=== PATIENT | male | born 1945 | race Caucasian/White ===

== ENCOUNTER 2016-08-30 17:54 | Emergency (ER) | payer OTHER ==
[~2016-08-30] VITALS: Ht 177.8 cm; Wt 90.9 kg
[~2016-08-30 17:54] MED LIST: ADULT LOW DOSE81 M1 PO; ALPRAZOLAM1 MG PO; AMBIEN CR12.5 MG PO; AMBIEN10 MG PO; AMLODIPINE BESYL5 MG PO; AMOXICILLIN500 M1 PO; ASA FREE ANALG1 EACH PO; ASPIR 8181 M1 PO; ASPIRIN325 MG PO; ASPIRIN81 M2 PO; ATARAX,VISTARIL25 MG PO; ATARAX,VISTARIL50 MG PO; AVINZA30 MG PO; BACLOFEN10 MG PO; BENTYL10 MG PO; CENTRUM SILVER1 EAC3 PO; CHILDREN'S ASPI81 M1 PO; CIPRO500 MG PO; CLOBETASOL PROP60 GM TP; CLONAZEPAM0.5 MG PO; CLONAZEPAM1 MG PO; CLONIDINE HCL0.1 MG PO; COLACE100 MG PO; COMPAZINE5 MG PO; DIAZEPAM10 MG PO; DIAZEPAM5 MG PO; DICYCLOMINE HCL10 MG PO; DICYCLOMINE HCL20 MG PO; DILAUDID2 MG PO; DOCU SOFT100 MG PO; DOXEPIN HCL25 MG PO; FLAGYL500 MG PO; FLEXERIL10 MG PO; FLOMAX0.4 MG PO; FLORASTOR250 MG PO; GABAPENTIN100 MG PO; HALCION0.25 MG PO; HARVONI 90-4001 EACH PO; HYDROCHLOROTH12.5 M3 PO; HYDROCHLOROTHIA25 MG PO; HYDROCHLOROTHIAZIDE PO; HYZAAR 100-21 TABLET PO; IPRATROPIUM BRO30 ML BOTH NARES; KLONOPIN1 MG PO; LIDOCAINE700 MG TD; LIDODERM 5% P1 PATCH TD; LISINOPRIL10 MG PO; LISINOPRIL20 MG PO; LITE COAT ASPI325 M1 PO; LOW DOSE ASPIRI81 M1 PO; LYRICA75 MG PO; METANX CAPSULE1 EACH PO; METHADONE10 MG PO; METOPROLOL SUCC25 MG PO; METOPROLOL SUCC50 MG PO; METOPROLOL TART50 MG PO; MIRALAX17 GM PO; MIRALAX255 GM PO; MOBIC7.5 MG PO; MORPHINE SULFAT15 MG PO; MORPHINE SULFAT30 M2 PO; MOTRIN600 MG PO; NAPROXEN500 MG PO; NEPHRON FA TAB1 EACH PO; OMEPRAZOLE20 MG PO; OXAYDO5 MG PO; OXYCODONE HCL10 MG PO; OXYCODONE HCL15 MG PO; OXYCODONE HCL5 MG PO; OXYCODONE10 MG PO; OXYCONTIN10 MG PO; OXYCONTIN15 MG PO; PANTOPRAZOLE SO40 MG PO; PEPCID20 MG PO; POLYETHYLENE GL17 GM PO; PRAVACHOL10 MG PO; PRAVACHOL40 MG PO; PRAVASTATIN SOD40 MG PO; PREDNISONE5 MG PO; PREVACID15 MG PO; PRILOSEC20 MG PO; PRILOSEC40 MG PO; PRINIVIL20 MG PO; PROMETHAZINE HC25 M1 PO; PROTONIX40 MG PO; RANITIDINE HCL150 MG PO; ROXICODONE5 MG PO; SENNA8.6 M1 PO; SENNA8.6 MG PO; SEROQUEL50 MG PO; SINEQUAN25 MG PO; SUBOXONE 4 MG-1 EACH SL; SYNTHROID175 MCG PO; TAMSULOSIN HCL0.4 MG PO; TOPROL XL50 MG PO; TOPROL XL6.25 MG PO; TORADOL10 MG PO; TRAZODONE HCL100 MG PO; TRAZODONE HCL50 MG PO; TRIAZOLAM0.25 MG PO; TUMS500 MG PO; ULTRAM50 MG PO; VALIUM5 MG PO; VANCOCIN 250 M250 MG PO; VANCOMYCIN HCL125 MG PO; VANCOMYCIN125 MG/2.5 PO; Vancocin Oral Solution PO; XIFAXAN550 MG PO; ZESTRIL20 MG PO; ZOFRAN ODT4 MG PO; ZOFRAN ODT8 MG PO; ZOFRAN4 MG PO; ZOFRAN8 MG PO
[2016-08-30 18:11] VITALS: BP 165/113
[2016-08-31] MEDS ORDERED: AMLODIPINE BESYL5 MG PO (21:00)
== END 2016-08-30 18:30 | disposition left against medical advice (07) ==
LOC: EME 17:54
DX: R22.42 Localized swelling, mass and lump, left lower limb (principal); Z53.21 Procedure and treatment not carried out due to patient leaving prior to being seen by health care provider

== ENCOUNTER 2016-08-31 18:02 | Emergency (ER) | payer OTHER ==
[~2016-08-31] VITALS: Ht 177.8 cm; Wt 89.5 kg
[2016-08-31] MEDS ORDERED: AMLODIPINE BESYL5 MG PO (21:00)
[2016-08-31 21:05] LABS: BASOPHIL COUNT 0.1 K/uL (0-0.1); EOSINOPHIL (%) 0.6 % (0-5); EOSINOPHIL COUNT 0.1 K/uL (0-0.3); HEMATOCRIT 44.5 % (38.0-50.0); IMMATURE GRANULOCYTE (%) 0.9 % (0.0-0.7); IMMATURE GRANULOCYTE COUNT 0.1 K/uL; LYMPHOCYTE COUNT 1.2 K/uL (1.0-2.8); MCH 32.8 PG (29.0-34.0); MCHC 32.4 G/DL (30.0-36.0); MCV 101.4 FL (86-99); MEAN PLAT.VOLUME 9.8 uM^3 (9.0-12.4); MONOCYTE (%) 10.3 % (3-12); MONOCYTE COUNT 1.1 K/uL (0-0.8); NEUTROPHIL (%) 76.4 % (45-76); PLATELET COUNT 208 K/uL (156-360); RBC DIS.WIDTH-CV 13.1 % (11.8-14.6); RBC DIS.WIDTH-SD 48.5 % (39-53); RED BLOOD COUNT 4.39 M/uL (4.00-5.50); WHITE BLOOD COUNT 10.5 K/uL (4.1-10.2)
[2016-08-31 21:19] LABS: INTER. NORMALIZED RATIO 1.1; PROTHROMBIN TIME 11.5 (9.2-11.2); PTT 28.5 (25-32)
[2016-08-31 21:26] LABS: CHLORIDE 103 mEq/L (99-109); SODIUM 138 mEq/L (136-147)
[2016-08-31 21:28] LABS: GLUCOSE 109 mg/dL (70-99)
[2016-08-31 21:30] LABS: ANION GAP 10 MEQ/L (2-14)
[2016-08-31 21:32] LABS: GFR ESTIMATE (CALCULATED) > 59 mL/min/
[2016-08-31 21:33] LABS: UREA NITROGEN (BUN) 32 mg/dL (9-23)
[2016-08-31 23:22] VITALS: BP 111/73
== END 2016-08-31 23:45 | disposition home or self-care (01) ==
LOC: EME 18:02
PROVIDERS: Emergency Medicine
DX: G89.18 Other acute postprocedural pain (principal); Z95.828 Presence of other vascular implants and grafts; L76.32 Postprocedural hematoma of skin and subcutaneous tissue following other procedure; I10 Essential (primary) hypertension; Z95.5 Presence of coronary angioplasty implant and graft; Z79.82 Long term (current) use of aspirin; Z87.891 Personal history of nicotine dependence
CPT/HCPCS: 80048; 85025; 85610; 85730; 93926; 99281; 99284

== ENCOUNTER 2016-09-14 11:17 | Emergency (ER) | payer OTHER ==
[~2016-09-14] VITALS: Ht 175.3 cm; Wt 86.0 kg
[2016-09-14 11:22] VITALS: BP 128/79
== END 2016-09-14 13:56 | disposition left against medical advice (07) ==
LOC: EME 11:17
DX: R19.7 Diarrhea, unspecified (principal); J45.909 Unspecified asthma, uncomplicated; E78.5 Hyperlipidemia, unspecified; I10 Essential (primary) hypertension; Z87.442 Personal history of urinary calculi; B19.20 Unspecified viral hepatitis C without hepatic coma; Z95.1 Presence of aortocoronary bypass graft; Z79.82 Long term (current) use of aspirin; Z87.891 Personal history of nicotine dependence
CPT/HCPCS: 80048; 80076; 81003; 83690; 84484; 85027; 87493; 99281; 99283

== ENCOUNTER 2016-09-18 03:08 | Emergency (ER) | payer OTHER ==
[~2016-09-18] VITALS: Ht 177.8 cm; Wt 85.6 kg
[2016-09-18 06:24] LABS: EOSINOPHIL (%) 0.6 % (0-5); EOSINOPHIL COUNT 0.1 K/uL (0-0.3); HEMATOCRIT 36.6 % (38.0-50.0); IMMATURE GRANULOCYTE (%) 1.8 % (0.0-0.7); IMMATURE GRANULOCYTE COUNT 0.2 K/uL; INSTRUMENT ABS NEUTROPHIL CT 7.8 K/uL; LYMPHOCYTE COUNT 1.2 K/uL (1.0-2.8); MCH 32.1 PG (29.0-34.0); MCV 100.5 FL (86-99); MEAN PLAT.VOLUME 9.2 uM^3 (9.0-12.4); MONOCYTE (%) 6.7 % (3-12); MONOCYTE COUNT 0.7 K/uL (0-0.8); NEUTROPHIL COUNT 7.8 K/uL (1.8-6.4); PLATELET COUNT 432 K/uL (156-360); RBC DIS.WIDTH-SD 45.1 % (39-53); RED BLOOD COUNT 3.64 M/uL (4.00-5.50); WHITE BLOOD COUNT 9.9 K/uL (4.1-10.2)
[2016-09-18 06:33] LABS: CHLORIDE 105 mEq/L (99-109); SODIUM 141 mEq/L (136-147)
[2016-09-18 06:35] LABS: GLUCOSE 115 mg/dL (70-99)
[2016-09-18 06:36] LABS: ANION GAP 11 MEQ/L (2-14)
[2016-09-18 06:37] LABS: TOTAL BILIRUBIN 0.5 mg/dL (0.0-1.0)
[2016-09-18 06:39] LABS: ALKALINE PHOSPHATASE 158 IU/L (3-129); GFR ESTIMATE (CALCULATED) > 59 mL/min/
[2016-09-18 06:40] LABS: UREA NITROGEN (BUN) 17 mg/dL (9-23)
[2016-09-18] MEDS ORDERED: ZOFRAN ODT4 MG PO (07:52)
[2016-09-18 08:14] VITALS: BP 125/75
== END 2016-09-18 08:17 | disposition home or self-care (01) ==
LOC: EME 03:08
PROVIDERS: Emergency Medicine
DX: R20.2 Paresthesia of skin (principal); E78.5 Hyperlipidemia, unspecified; I10 Essential (primary) hypertension; Z86.79 Personal history of other diseases of the circulatory system; Z98.890 Other specified postprocedural states; Z95.1 Presence of aortocoronary bypass graft; Z87.442 Personal history of urinary calculi; Z88.6 Allergy status to analgesic agent; Z91.041 Radiographic dye allergy status; Z87.891 Personal history of nicotine dependence
CPT/HCPCS: 80053; 83605; 85014; 85018; 85025; 93926; 99281; 99284

== ENCOUNTER 2016-10-12 21:25 | Emergency (ER) | payer OTHER ==
[~2016-10-12] VITALS: Ht 177.8 cm; Wt 86.6 kg
[2016-10-12 22:37] LABS: ADD MIUA? YES; BILIRUBIN NEGATIVE; BLOOD MODERATE; COLOR YELLOW ((YELLOW)); GLUCOSE (STRIP) NEGATIVE; KETONES NEGATIVE; LEUKOCYTES NEGATIVE; NITRITE NEGATIVE; PROTEIN (STRIP) NEGATIVE; SPECIFIC GRAVITY 1.011 (1.000-1.030); UROBILINOGEN 0.2 MG/DL (0.2-1.0)
[2016-10-12 22:50] LABS: HEMATOCRIT 43.7 % (38.0-50.0); MCH 31.9 PG (29.0-34.0); MCV 96.7 FL (86-99); MEAN PLAT.VOLUME 9.8 uM^3 (9.0-12.4); PLATELET COUNT 249 K/uL (156-360); RBC DIS.WIDTH-CV 12.7 % (11.8-14.6); RBC DIS.WIDTH-SD 45.9 % (39-53); RED BLOOD COUNT 4.52 M/uL (4.00-5.50); WHITE BLOOD COUNT 11.8 K/uL (4.1-10.2)
[2016-10-12 22:53] LABS: BACTERIA RARE /HPF; EPITHELIAL CELLS RARE /HPF; HYALINE CASTS 0-5 /LPF; MUCUS TRACE /LPF; RED BLOOD CELLS 30-40 /HPF (0-5); UCUL ADDED? NO; WHITE BLOOD CELLS 0-5 /HPF (0-5)
[2016-10-12 22:58] LABS: CHLORIDE 107 mEq/L (99-109); POTASSIUM 3.5 mEq/L (3.7-5.4); SODIUM 136 mEq/L (136-147)
[2016-10-12 23:00] LABS: GLUCOSE 118 mg/dL (70-99)
[2016-10-12 23:01] LABS: ANION GAP 10 MEQ/L (2-14)
[2016-10-12 23:02] LABS: TOTAL BILIRUBIN 0.6 mg/dL (0.0-1.0)
[2016-10-12 23:04] LABS: ALKALINE PHOSPHATASE 92 IU/L (3-129); GFR ESTIMATE (CALCULATED) > 59 mL/min/
[2016-10-12 23:05] LABS: UREA NITROGEN (BUN) 14 mg/dL (9-23)
[2016-10-13] MEDS ORDERED: DILAUDID2 MG PO (06:13)
[2016-10-13 06:22] VITALS: BP 142/87
== END 2016-10-13 06:23 | disposition home or self-care (01) ==
LOC: EME 21:25
DX: N20.1 Calculus of ureter (principal); Z98.890 Other specified postprocedural states; J45.909 Unspecified asthma, uncomplicated; E78.5 Hyperlipidemia, unspecified; I10 Essential (primary) hypertension; B19.20 Unspecified viral hepatitis C without hepatic coma; Z87.442 Personal history of urinary calculi; Z95.1 Presence of aortocoronary bypass graft; Z87.891 Personal history of nicotine dependence
CPT/HCPCS: 74174; 80053; 81003; 85027; 99281; 99284; J2270; J7030

== ENCOUNTER 2016-10-27 00:31 | Observation (INO) | payer OTHER ==
[~2016-10-27] VITALS: Ht 177.8 cm; Wt 88.3 kg
[2016-10-27 00:54] LABS: ADD MIUA? YES; BILIRUBIN NEGATIVE; BLOOD SMALL; COLOR YELLOW ((YELLOW)); GLUCOSE (STRIP) NEGATIVE; KETONES NEGATIVE; LEUKOCYTES TRACE; NITRITE NEGATIVE; PROTEIN (STRIP) 30; SPECIFIC GRAVITY 1.025 (1.000-1.030); UROBILINOGEN 0.2 MG/DL (0.2-1.0)
[2016-10-27 01:01] LABS: BACTERIA NONE SEEN /HPF; EPITHELIAL CELLS RARE /HPF; MUCUS TRACE /LPF
[2016-10-27 01:18] LABS: EOSINOPHIL COUNT 0.1 K/uL (0-0.3); HEMATOCRIT 40.8 % (38.0-50.0); IMMATURE GRANULOCYTE (%) 0.5 % (0.0-0.7); IMMATURE GRANULOCYTE COUNT 0.1 K/uL; INSTRUMENT ABS NEUTROPHIL CT 11.3 K/uL; LYMPHOCYTE COUNT 1.4 K/uL (1.0-2.8); MCH 31.8 PG (29.0-34.0); MCHC 32.8 G/DL (30.0-36.0); MCV 96.9 FL (86-99); MEAN PLAT.VOLUME 10.4 uM^3 (9.0-12.4); MONOCYTE (%) 5.6 % (3-12); MONOCYTE COUNT 0.8 K/uL (0-0.8); NEUTROPHIL (%) 82.2 % (45-76); NEUTROPHIL COUNT 11.3 K/uL (1.8-6.4); PLATELET COUNT 209 K/uL (156-360); RBC DIS.WIDTH-SD 43.4 % (39-53); RED BLOOD COUNT 4.21 M/uL (4.00-5.50); WHITE BLOOD COUNT 13.8 K/uL (4.1-10.2)
[2016-10-27 01:28] LABS: CHLORIDE 107 mEq/L (99-109); POTASSIUM 3.6 mEq/L (3.7-5.4); SODIUM 143 mEq/L (136-147)
[2016-10-27 01:30] LABS: GLUCOSE 139 mg/dL (70-99)
[2016-10-27 01:31] LABS: ANION GAP 10 MEQ/L (2-14)
[2016-10-27 01:32] LABS: TOTAL BILIRUBIN 0.3 mg/dL (0.0-1.0)
[2016-10-27 01:33] LABS: ALKALINE PHOSPHATASE 104 IU/L (3-129)
[2016-10-27 01:34] LABS: GFR ESTIMATE (CALCULATED) > 59 mL/min/
[2016-10-27 01:35] LABS: UREA NITROGEN (BUN) 29 mg/dL (9-23)
[2016-10-27 01:37] LABS: LIPASE 23 U/L (1.0-51.0)
[2016-10-27] MEDS ORDERED: OXYCODONE HCL10 MG PO ×2 (05:31→17:28)
[2016-10-27 05:38] VITALS: BP 163/80
[2016-10-27] MEDS ORDERED: DUTASTERIDE0.5 MG PO (09:57)
[2016-10-27] MEDS ORDERED: DOCUSATE SODIU100 MG PO (09:57)
[2016-10-27] MEDS ORDERED: IPRATROPIUM BRO15 ML BOTH NARES (09:58)
[2016-10-27] MEDS ORDERED: MIRALAX17 GM PO (09:59)
[2016-10-27] MEDS ORDERED: ALPRAZOLAM1 MG PO (09:59)
[2016-10-27] MEDS ORDERED: PRAVASTATIN SOD40 MG PO (10:00)
[2016-10-27 11:40] VITALS: BP 142/66
[2016-10-27 16:01] VITALS: BP 196/85
[2016-10-27] MEDS ORDERED: TAMSULOSIN HCL0.4 MG PO (17:19)
[2016-10-28] MEDS ORDERED: CIPRO500 MG PO (21:41)
== END 2016-10-27 19:03 | disposition home or self-care (01) ==
LOC: EME 00:31 → 5WEST 04:59 → EDOF 04:59 → 5WEST 05:31
PROVIDERS: Emergency Medicine
DX: N13.2 Hydronephrosis with renal and ureteral calculous obstruction (principal); N35.9 Urethral stricture, unspecified; N21.0 Calculus in bladder; R35.1 Nocturia; E03.9 Hypothyroidism, unspecified; I25.10 Atherosclerotic heart disease of native coronary artery without angina pectoris; I10 Essential (primary) hypertension; E78.5 Hyperlipidemia, unspecified; F32.9 Major depressive disorder, single episode, unspecified; F41.9 Anxiety disorder, unspecified; B18.2 Chronic viral hepatitis C; Z95.1 Presence of aortocoronary bypass graft; G89.29 Other chronic pain; M54.9 Dorsalgia, unspecified; I12.9 Hypertensive chronic kidney disease with stage 1 through stage 4 chronic kidney disease, or unspecified chronic kidney disease; N18.3 Chronic kidney disease, stage 3 (moderate); E87.6 Hypokalemia; F11.20 Opioid dependence, uncomplicated
CPT/HCPCS: 74176; 80053; 81003; 83690; 85025; 99281; 99284; C1769; C1876; G0378; J0692; J1170; J1650; J1885; J2270; J2405; J3010; J3480; J7030; J7050; S0028

== ENCOUNTER 2016-10-28 17:07 | Emergency (ER) | payer OTHER ==
[~2016-10-28] VITALS: Ht 177.8 cm; Wt 88.6 kg
[~2016-10-28 17:07] MED LIST changes: +DOCUSATE SODIU100 MG PO; +DUTASTERIDE0.5 MG PO; +IPRATROPIUM BRO15 ML BOTH NARES
[2016-10-28 17:58] LABS: HEMATOCRIT 39.1 % (38.0-50.0); MCH 31.6 PG (29.0-34.0); MCHC 33.2 G/DL (30.0-36.0); MCV 95.1 FL (86-99); MEAN PLAT.VOLUME 10.5 uM^3 (9.0-12.4); PLATELET COUNT 217 K/uL (156-360); RBC DIS.WIDTH-CV 11.9 % (11.8-14.6); RBC DIS.WIDTH-SD 42.2 % (39-53); RED BLOOD COUNT 4.11 M/uL (4.00-5.50); WHITE BLOOD COUNT 11.7 K/uL (4.1-10.2)
[2016-10-28 18:09] LABS: CHLORIDE 106 mEq/L (99-109); POTASSIUM 3.2 mEq/L (3.7-5.4); SODIUM 142 mEq/L (136-147)
[2016-10-28 18:11] LABS: GLUCOSE 133 mg/dL (70-99)
[2016-10-28 18:13] LABS: ANION GAP 11 MEQ/L (2-14)
[2016-10-28 18:15] LABS: GFR ESTIMATE (CALCULATED) > 59 mL/min/
[2016-10-28 18:16] LABS: UREA NITROGEN (BUN) 22 mg/dL (9-23)
[2016-10-28 19:09] LABS: ADD MIUA? YES; BILIRUBIN NEGATIVE; BLOOD LARGE; COLOR AMBER ((YELLOW)); GLUCOSE (STRIP) NEGATIVE; KETONES NEGATIVE; LEUKOCYTES SMALL; NITRITE NEGATIVE; PROTEIN (STRIP) 100; SPECIFIC GRAVITY 1.019 (1.000-1.030); UROBILINOGEN 0.2 MG/DL (0.2-1.0)
[2016-10-28 19:26] LABS: BACTERIA 1+ /HPF; CASTS NONE SEEN /LPF; CRYSTALS NONE SEEN; EPITHELIAL CELLS RARE /HPF; MUCUS RARE /LPF; RED BLOOD CELLS TNTC /HPF (0-5); UCUL ADDED? NO
[2016-10-28] MEDS ORDERED: CIPRO500 MG PO (21:41)
[2016-10-28 23:37] VITALS: BP 157/94
== END 2016-10-28 21:42 | disposition home or self-care (01) ==
LOC: EME 17:07
DX: N39.0 Urinary tract infection, site not specified (principal); N20.0 Calculus of kidney; I10 Essential (primary) hypertension; J45.909 Unspecified asthma, uncomplicated; F31.9 Bipolar disorder, unspecified; E78.5 Hyperlipidemia, unspecified; Z95.1 Presence of aortocoronary bypass graft; Z87.891 Personal history of nicotine dependence
CPT/HCPCS: 74176; 80048; 81003; 85027; 93005; 99281; 99285; J1885; J2270; J2405; J7030

== ENCOUNTER 2016-10-30 17:18 | Emergency (ER) | payer OTHER ==
[~2016-10-30] VITALS: Ht 177.8 cm; Wt 86.7 kg
[2016-10-30 20:23] LABS: ADD MIUA? YES; BILIRUBIN NEGATIVE; BLOOD LARGE; COLOR YELLOW ((YELLOW)); GLUCOSE (STRIP) NEGATIVE; KETONES NEGATIVE; LEUKOCYTES LARGE; NITRITE NEGATIVE; PROTEIN (STRIP) 100; SPECIFIC GRAVITY 1.017 (1.000-1.030); UROBILINOGEN 0.2 MG/DL (0.2-1.0)
[2016-10-30 20:29] LABS: BACTERIA RARE /HPF; EPITHELIAL CELLS RARE /HPF; MUCUS TRACE /LPF; RED BLOOD CELLS TNTC /HPF (0-5); WHITE BLOOD CELLS 15-20 /HPF (0-5)
[2016-10-30 21:14] VITALS: BP 128/105
== END 2016-10-30 21:15 | disposition home or self-care (01) ==
LOC: EME 17:18
PROVIDERS: Physician Assistant
DX: N13.2 Hydronephrosis with renal and ureteral calculous obstruction (principal); E78.5 Hyperlipidemia, unspecified; I10 Essential (primary) hypertension; F32.9 Major depressive disorder, single episode, unspecified; Z87.442 Personal history of urinary calculi; Z88.6 Allergy status to analgesic agent; Z91.041 Radiographic dye allergy status; Z87.891 Personal history of nicotine dependence; Z95.1 Presence of aortocoronary bypass graft
CPT/HCPCS: 74000; 76770; 81003; 87086; 99281; 99284; J1885

== ENCOUNTER 2016-10-31 04:12 | Emergency (ER) | payer OTHER | END 2016-10-31 04:22 | disposition left against medical advice (07) | LOC: EME 04:12 | DX: R10.9 Unspecified abdominal pain (principal); Z53.21 Procedure and treatment not carried out due to patient leaving prior to being seen by health care provider ==

== ENCOUNTER 2016-10-31 20:28 | Emergency (ER) | payer OTHER ==
[~2016-10-31] VITALS: Ht 177.8 cm; Wt 86.1 kg
[2016-10-31 20:41] VITALS: BP 170/92
== END 2016-11-01 00:05 | disposition left against medical advice (07) ==
LOC: EME 20:28
DX: R19.7 Diarrhea, unspecified (principal); Z53.21 Procedure and treatment not carried out due to patient leaving prior to being seen by health care provider

== ENCOUNTER 2016-11-01 01:22 | Emergency (ER) | payer OTHER ==
[~2016-11-01] VITALS: Ht 177.8 cm; Wt 90.0 kg
[2016-11-01 07:22] LABS: ADD MIUA? YES; BILIRUBIN NEGATIVE; BLOOD LARGE; COLOR YELLOW ((YELLOW)); GLUCOSE (STRIP) NEGATIVE; KETONES 5; LEUKOCYTES MODERATE; NITRITE NEGATIVE; PROTEIN (STRIP) 100; UROBILINOGEN 0.2 MG/DL (0.2-1.0)
[2016-11-01 07:38] LABS: C DIFF TOXIN NEGATIVE (NEGATIVE)
[2016-11-01 07:39] LABS: PROBE CHECK PASS; SPECIMEN PROCESSING CONTROL PASS
[2016-11-01 07:45] LABS: RED BLOOD CELLS TNTC /HPF (0-5)
[2016-11-01 07:46] LABS: CALCIUM OXALATE CRYSTALS 1+ /HPF; CRYSTALS PRESENT; EPITHELIAL CELLS 1+ /HPF; MUCUS 1+ /LPF; UCUL ADDED? NO; WHITE BLOOD CELLS 20-30 /HPF (0-5)
[2016-11-01 07:47] LABS: BACTERIA RARE /HPF
[2016-11-01 08:00] VITALS: BP 136/91
== END 2016-11-01 08:30 | disposition home or self-care (01) ==
LOC: EME 01:22
PROVIDERS: Physician Assistant
DX: R10.9 Unspecified abdominal pain (principal); R19.7 Diarrhea, unspecified; E78.5 Hyperlipidemia, unspecified; I10 Essential (primary) hypertension; Z87.442 Personal history of urinary calculi; Z95.1 Presence of aortocoronary bypass graft; Z91.041 Radiographic dye allergy status; Z87.891 Personal history of nicotine dependence; Z88.6 Allergy status to analgesic agent
CPT/HCPCS: 80053; 81003; 85027; 87493; 99281; 99284

== ENCOUNTER 2016-11-05 06:38 | Emergency (ER) | payer OTHER ==
[~2016-11-05] VITALS: Ht 177.8 cm; Wt 86.0 kg
[2016-11-05 07:44] LABS: BASOPHIL COUNT 0.1 K/uL (0-0.1); EOSINOPHIL COUNT 0.2 K/uL (0-0.3); HEMATOCRIT 41.2 % (38.0-50.0); IMMATURE GRANULOCYTE (%) 0.3 % (0.0-0.7); INSTRUMENT ABS NEUTROPHIL CT 6.7 K/uL; LYMPHOCYTE COUNT 1.4 K/uL (1.0-2.8); MCH 31.8 PG (29.0-34.0); MCHC 33.5 G/DL (30.0-36.0); MCV 94.9 FL (86-99); MEAN PLAT.VOLUME 10.3 uM^3 (9.0-12.4); MONOCYTE COUNT 0.8 K/uL (0-0.8); NEUTROPHIL COUNT 6.7 K/uL (1.8-6.4); PLATELET COUNT 253 K/uL (156-360); RBC DIS.WIDTH-CV 12.3 % (11.8-14.6); RBC DIS.WIDTH-SD 43.5 % (39-53); RED BLOOD COUNT 4.34 M/uL (4.00-5.50); WHITE BLOOD COUNT 9.2 K/uL (4.1-10.2)
[2016-11-05 07:53] LABS: ADD MIUA? YES; BILIRUBIN NEGATIVE; BLOOD LARGE; COLOR YELLOW ((YELLOW)); GLUCOSE (STRIP) NEGATIVE; KETONES NEGATIVE; LEUKOCYTES LARGE; NITRITE NEGATIVE; PROTEIN (STRIP) 100; SPECIFIC GRAVITY 1.016 (1.000-1.030); UROBILINOGEN 0.2 MG/DL (0.2-1.0)
[2016-11-05 08:08] LABS: ANION GAP 8 MEQ/L (2-14); CHLORIDE 106 MEQ/L (99-109); POTASSIUM 3.5 MEQ/L (3.7-5.4); SAMPLE HEMOLYSIS CHECK 0; SAMPLE ICTERIC CHECK 0; SAMPLE LIPEMIA CHECK 0; SODIUM 136 MEQ/L (136-147); TOTAL BILIRUBIN 0.5 MG/DL (0.0-1.0)
[2016-11-05 08:13] LABS: ALKALINE PHOSPHATASE 96 IU/L (3-129); GFR ESTIMATE (CALCULATED) > 59 mL/min/; GLUCOSE 108 mg/dL (70-99); UREA NITROGEN (BUN) 20 mg/dL (9-23)
[2016-11-05 08:15] LABS: BACTERIA RARE /HPF; EPITHELIAL CELLS RARE /HPF; MUCUS 1+ /LPF; RED BLOOD CELLS TNTC /HPF (0-5); UCUL ADDED? NO; URIC ACID CRYSTALS 3+ /HPF; WHITE BLOOD CELLS 15-20 /HPF (0-5)
[2016-11-05] MEDS ORDERED: NAPROXEN500 MG PO (11:06)
[2016-11-05 11:26] VITALS: BP 148/87
== END 2016-11-05 11:46 | disposition home or self-care (01) ==
LOC: EME 06:38
PROVIDERS: Physician Assistant
DX: N13.2 Hydronephrosis with renal and ureteral calculous obstruction (principal); J45.909 Unspecified asthma, uncomplicated; E78.5 Hyperlipidemia, unspecified; I10 Essential (primary) hypertension; Z87.442 Personal history of urinary calculi; Z95.1 Presence of aortocoronary bypass graft; Z87.891 Personal history of nicotine dependence
CPT/HCPCS: 74176; 80053; 81003; 85025; 87493; 99281; 99285; J1885; J7120

== ENCOUNTER 2016-11-07 18:38 | Emergency (ER) | payer OTHER ==
[~2016-11-07] VITALS: Ht 177.8 cm; Wt 85.6 kg
[2016-11-07 19:48] LABS: ADD MIUA? YES; BILIRUBIN NEGATIVE; BLOOD LARGE; COLOR AMBER ((YELLOW)); GLUCOSE (STRIP) NEGATIVE; KETONES NEGATIVE; LEUKOCYTES TRACE; NITRITE NEGATIVE; PROTEIN (STRIP) 100; UROBILINOGEN 0.2 MG/DL (0.2-1.0)
[2016-11-07 19:56] LABS: BACTERIA NONE SEEN /HPF; EPITHELIAL CELLS NONE SEEN /HPF; MUCUS TRACE /LPF; RED BLOOD CELLS TNTC /HPF (0-5); WHITE BLOOD CELLS 15-20 /HPF (0-5)
[2016-11-07 20:28] LABS: BASOPHIL COUNT 0.1 K/uL (0-0.1); EOSINOPHIL (%) 1.8 % (0-5); EOSINOPHIL COUNT 0.2 K/uL (0-0.3); IMMATURE GRANULOCYTE (%) 0.4 % (0.0-0.7); INSTRUMENT ABS NEUTROPHIL CT 6.7 K/uL; LYMPHOCYTE COUNT 1.3 K/uL (1.0-2.8); MCH 31.3 PG (29.0-34.0); MCHC 33.3 G/DL (30.0-36.0); MEAN PLAT.VOLUME 10.1 uM^3 (9.0-12.4); MONOCYTE (%) 7.6 % (3-12); MONOCYTE COUNT 0.7 K/uL (0-0.8); NEUTROPHIL (%) 74.7 % (45-76); NEUTROPHIL COUNT 6.7 K/uL (1.8-6.4); PLATELET COUNT 237 K/uL (156-360); RBC DIS.WIDTH-CV 12.2 % (11.8-14.6); RBC DIS.WIDTH-SD 42.5 % (39-53); RED BLOOD COUNT 4.15 M/uL (4.00-5.50); WHITE BLOOD COUNT 8.9 K/uL (4.1-10.2)
[2016-11-07 20:39] LABS: CHLORIDE 107 mEq/L (99-109); POTASSIUM 3.7 mEq/L (3.7-5.4); SODIUM 138 mEq/L (136-147)
[2016-11-07 20:42] LABS: GLUCOSE 105 mg/dL (70-99)
[2016-11-07 20:43] LABS: ANION GAP 9 MEQ/L (2-14); TOTAL BILIRUBIN 0.5 mg/dL (0.0-1.0)
[2016-11-07 20:45] LABS: ALKALINE PHOSPHATASE 88 IU/L (3-129); GFR ESTIMATE (CALCULATED) > 59 mL/min/
[2016-11-07 20:46] LABS: UREA NITROGEN (BUN) 16 mg/dL (9-23)
[2016-11-07 20:49] LABS: LIPASE 18 U/L (1.0-51.0)
[2016-11-07 21:47] VITALS: BP 115/64
== END 2016-11-07 21:52 | disposition home or self-care (01) ==
LOC: EME 18:38
PROVIDERS: Physician Assistant
DX: N23 Unspecified renal colic (principal); R31.9 Hematuria, unspecified; E78.5 Hyperlipidemia, unspecified; I10 Essential (primary) hypertension; Z87.442 Personal history of urinary calculi; Z95.1 Presence of aortocoronary bypass graft; Z79.82 Long term (current) use of aspirin; Z87.891 Personal history of nicotine dependence
CPT/HCPCS: 80053; 81003; 83690; 85025; 99281; 99283; J2270

== ENCOUNTER 2016-11-08 18:06 | Emergency (ER) | payer OTHER ==
[~2016-11-08] VITALS: Ht 177.8 cm; Wt 85.5 kg
[2016-11-08 18:40] VITALS: BP 113/93
== END 2016-11-08 19:01 | disposition left against medical advice (07) ==
LOC: EME 18:06
DX: R10.9 Unspecified abdominal pain (principal); R19.7 Diarrhea, unspecified; R50.9 Fever, unspecified; R06.02 Shortness of breath; R07.9 Chest pain, unspecified; Z53.21 Procedure and treatment not carried out due to patient leaving prior to being seen by health care provider
CPT/HCPCS: 80053; 81003; 83690; 84484; 85027; 93005

== ENCOUNTER 2016-12-05 21:27 | Emergency (ER) | payer OTHER ==
[~2016-12-05] VITALS: Ht 177.8 cm; Wt 85.7 kg
[2016-12-05 21:44] VITALS: BP 147/87
[2016-12-05 22:39] LABS: HEMATOCRIT 42.7 % (38.0-50.0); MCH 30.9 PG (29.0-34.0); MCV 93.6 FL (86-99); MEAN PLAT.VOLUME 10.8 uM^3 (9.0-12.4); PLATELET COUNT 197 K/uL (156-360); RBC DIS.WIDTH-SD 41.9 % (39-53); RED BLOOD COUNT 4.56 M/uL (4.00-5.50); WHITE BLOOD COUNT 8.6 K/uL (4.1-10.2)
[2016-12-05 22:50] LABS: CHLORIDE 109 mEq/L (99-109); POTASSIUM 3.8 mEq/L (3.7-5.4); SODIUM 139 mEq/L (136-147)
[2016-12-05 22:52] LABS: GLUCOSE 107 mg/dL (70-99)
[2016-12-05 22:53] LABS: ANION GAP 9 MEQ/L (2-14)
[2016-12-05 22:56] LABS: GFR ESTIMATE (CALCULATED) > 59 mL/min/
[2016-12-05 22:57] LABS: UREA NITROGEN (BUN) 19 mg/dL (9-23)
== END 2016-12-06 01:00 | disposition left against medical advice (07) ==
LOC: EME 21:27
DX: N20.0 Calculus of kidney (principal); Z53.21 Procedure and treatment not carried out due to patient leaving prior to being seen by health care provider
CPT/HCPCS: 80048; 81003; 85027

== ENCOUNTER 2017-01-01 15:51 | Emergency (ER) | payer OTHER ==
[~2017-01-01] VITALS: Ht 177.8 cm; Wt 78.0 kg
[2017-01-01 17:19] LABS: ADD MIUA? YES; BILIRUBIN NEGATIVE; BLOOD SMALL; GLUCOSE (STRIP) NEGATIVE; KETONES NEGATIVE; LEUKOCYTES NEGATIVE; NITRITE NEGATIVE; PROTEIN (STRIP) NEGATIVE; SPECIFIC GRAVITY 1.014 (1.000-1.030); UROBILINOGEN 0.2 MG/DL (0.2-1.0)
[2017-01-01 17:31] LABS: BACTERIA NONE SEEN /HPF; COLOR YELLOW ((YELLOW)); EPITHELIAL CELLS RARE /HPF; HYALINE CASTS 0-5 /LPF; MUCUS TRACE /LPF; WHITE BLOOD CELLS 0-5 /HPF (0-5)
[2017-01-01 17:52] VITALS: BP 96/58
== END 2017-01-01 17:53 | disposition left against medical advice (07) ==
LOC: EME 15:51
PROVIDERS: Physician Assistant
DX: I95.9 Hypotension, unspecified (principal); R07.9 Chest pain, unspecified; Z53.20 Procedure and treatment not carried out because of patient's decision for unspecified reasons; I25.10 Atherosclerotic heart disease of native coronary artery without angina pectoris; E78.00 Pure hypercholesterolemia, unspecified; I10 Essential (primary) hypertension; I25.2 Old myocardial infarction; Z87.442 Personal history of urinary calculi; J45.909 Unspecified asthma, uncomplicated; Z95.1 Presence of aortocoronary bypass graft; Z87.891 Personal history of nicotine dependence; Z79.82 Long term (current) use of aspirin
CPT/HCPCS: 80053; 81003; 83605; 84484; 85027; 93005; 99281; 99285; J7030

== ENCOUNTER 2017-04-21 13:53 | Emergency (ER) | payer OTHER ==
[~2017-04-21] VITALS: Ht 172.7 cm; Wt 83.1 kg
[2017-04-21 14:38] LABS: HEMATOCRIT 43.3 % (38.0-50.0); MCHC 33.5 G/DL (30.0-36.0); MCV 92.7 FL (86-99); MEAN PLAT.VOLUME 9.8 uM^3 (9.0-12.4); PLATELET COUNT 343 K/uL (156-360); RBC DIS.WIDTH-CV 11.6 % (11.8-14.6); RED BLOOD COUNT 4.67 M/uL (4.00-5.50); WHITE BLOOD COUNT 11.4 K/uL (4.1-10.2)
[2017-04-21 14:47] LABS: CHLORIDE 103 mEq/L (99-109); POTASSIUM 3.7 mEq/L (3.7-5.4); SODIUM 135 mEq/L (136-147)
[2017-04-21 14:48] LABS: GLUCOSE 129 mg/dL (70-99)
[2017-04-21 14:50] LABS: ANION GAP 11 MEQ/L (2-14)
[2017-04-21 14:52] LABS: GFR ESTIMATE (CALCULATED) > 59 mL/min/
[2017-04-21 14:53] LABS: UREA NITROGEN (BUN) 16 mg/dL (9-23)
[2017-04-21 14:59] LABS: TROP-I INTERPRETATION NEGATIVE; TROPONIN-I < 0.01 ng/mL (0.0-0.30)
[2017-04-21 15:05] LABS: TOTAL BILIRUBIN 0.7 mg/dL (0.0-1.0)
[2017-04-21 15:06] LABS: ALKALINE PHOSPHATASE 159 IU/L (3-129)
[2017-04-21 15:09] LABS: DIRECT BILIRUBIN 0.2 mg/dL (0.0-0.3)
[2017-04-21 15:10] LABS: LIPASE 18 U/L (1.0-51.0)
[2017-04-21 17:37] LABS: ADD MIUA? YES; BILIRUBIN NEGATIVE; BLOOD NEGATIVE; COLOR YELLOW ((YELLOW)); GLUCOSE (STRIP) NEGATIVE; KETONES 5; LEUKOCYTES NEGATIVE; NITRITE NEGATIVE; PROTEIN (STRIP) 30; SPECIFIC GRAVITY 1.019 (1.000-1.030); UROBILINOGEN 0.2 MG/DL (0.2-1.0)
[2017-04-21 17:51] LABS: BACTERIA NONE SEEN /HPF; EPITHELIAL CELLS RARE /HPF; MUCUS TRACE /LPF; UCUL ADDED? NO; WHITE BLOOD CELLS 0-5 /HPF (0-5)
[2017-04-21 18:21] LABS: TROP-I INTERPRETATION NEGATIVE; TROPONIN-I < 0.01 ng/mL (0.0-0.30)
[2017-04-21] MEDS ORDERED: ZOFRAN ODT4 MG PO (19:13)
[2017-04-21] MEDS ORDERED: CARAFATE100 MG/ML PO (19:13)
[2017-04-21 19:28] VITALS: BP 129/72
== END 2017-04-21 19:38 | disposition home or self-care (01) ==
LOC: EME 13:53
PROVIDERS: Emergency Medicine
DX: R10.13 Epigastric pain (principal); R11.2 Nausea with vomiting, unspecified; R07.89 Other chest pain; I45.10 Unspecified right bundle-branch block; I10 Essential (primary) hypertension; E78.5 Hyperlipidemia, unspecified; I25.10 Atherosclerotic heart disease of native coronary artery without angina pectoris; Z95.1 Presence of aortocoronary bypass graft; J45.909 Unspecified asthma, uncomplicated; F41.9 Anxiety disorder, unspecified; F32.9 Major depressive disorder, single episode, unspecified; G89.29 Other chronic pain; Z79.891 Long term (current) use of opiate analgesic; Z87.891 Personal history of nicotine dependence; Z88.6 Allergy status to analgesic agent; Z98.890 Other specified postprocedural states
CPT/HCPCS: 71020; 76700; 80048; 80076; 81003; 83690; 84484; 85027; 93005; 99281; 99285; J2405; J7030; S0028

== ENCOUNTER → 2017-05-13 13:33 | Emergency (ER) | payer OTHER ==
[~2017-05-13] VITALS: Ht 172.7 cm; Wt 81.0 kg
[~2017-05-13 13:33] MED LIST changes: +CARAFATE100 MG/ML PO
[2017-05-13 18:46] VITALS: BP 168/76
== END | disposition home or self-care (01) ==
LOC: EME 13:33
DX: S06.0X0A Concussion without loss of consciousness, initial encounter (principal); S16.1XXA Strain of muscle, fascia and tendon at neck level, initial encounter; W22.09XA Striking against other stationary object, initial encounter; W18.30XA Fall on same level, unspecified, initial encounter; Y93.89 Activity, other specified; Y92.512 Supermarket, store or market as the place of occurrence of the external cause; Z88.6 Allergy status to analgesic agent; Z91.041 Radiographic dye allergy status
CPT/HCPCS: 70450; 72040

== ENCOUNTER 2017-05-18 06:30 | Emergency (ER) | payer OTHER ==
[~2017-05-18] VITALS: Ht 175.3 cm; Wt 81.4 kg
[2017-05-18 06:33] VITALS: BP 138/93
== END 2017-05-18 06:45 | disposition left against medical advice (07) ==
LOC: EME 06:30
DX: R51 Headache (principal); Z53.21 Procedure and treatment not carried out due to patient leaving prior to being seen by health care provider

== ENCOUNTER 2017-05-27 12:34 | Emergency (ER) | payer OTHER ==
[~2017-05-27] VITALS: Ht 175.3 cm; Wt 83.7 kg
[2017-05-27 17:37] VITALS: BP 139/88
== END 2017-05-27 18:52 | disposition left against medical advice (07) ==
LOC: EME 12:34
DX: G44.209 Tension-type headache, unspecified, not intractable (principal); S16.1XXA Strain of muscle, fascia and tendon at neck level, initial encounter; W01.0XXA Fall on same level from slipping, tripping and stumbling without subsequent striking against object, initial encounter; Y92.512 Supermarket, store or market as the place of occurrence of the external cause; Z87.442 Personal history of urinary calculi; J45.909 Unspecified asthma, uncomplicated; I10 Essential (primary) hypertension; F41.9 Anxiety disorder, unspecified; F32.9 Major depressive disorder, single episode, unspecified; E78.5 Hyperlipidemia, unspecified; Z95.1 Presence of aortocoronary bypass graft; I25.10 Atherosclerotic heart disease of native coronary artery without angina pectoris; Z79.82 Long term (current) use of aspirin; Z88.6 Allergy status to analgesic agent
CPT/HCPCS: 99281; 99285; J1885; J2765; J7040

== ENCOUNTER 2017-06-20 03:05 | Emergency (ER) | payer OTHER ==
[~2017-06-20] VITALS: Ht 175.3 cm; Wt 81.8 kg
[2017-06-20 03:11] VITALS: BP 152/83
== END 2017-06-20 04:50 | disposition left against medical advice (07) ==
LOC: EME 03:05
DX: R51 Headache (principal); Z53.21 Procedure and treatment not carried out due to patient leaving prior to being seen by health care provider

== ENCOUNTER 2017-06-26 02:56 | Emergency (ER) | payer OTHER ==
[~2017-06-26] VITALS: Ht 172.7 cm; Wt 84.4 kg
[2017-06-26 05:15] VITALS: BP 147/94
== END 2017-06-26 05:15 | disposition home or self-care (01) ==
LOC: EME 02:56
DX: F07.81 Postconcussional syndrome (principal); G44.309 Post-traumatic headache, unspecified, not intractable; R59.1 Generalized enlarged lymph nodes; Z87.442 Personal history of urinary calculi; I10 Essential (primary) hypertension; F41.9 Anxiety disorder, unspecified; E78.5 Hyperlipidemia, unspecified; F32.9 Major depressive disorder, single episode, unspecified; J45.909 Unspecified asthma, uncomplicated; Z95.1 Presence of aortocoronary bypass graft; I25.10 Atherosclerotic heart disease of native coronary artery without angina pectoris; Z79.82 Long term (current) use of aspirin; Z91.041 Radiographic dye allergy status; Z88.6 Allergy status to analgesic agent
CPT/HCPCS: 99281; 99284; J1885

== ENCOUNTER 2017-09-02 21:27 | Emergency (ER) | payer OTHER ==
[~2017-09-02] VITALS: Ht 175.3 cm; Wt 83.1 kg
[2017-09-02 21:48] VITALS: BP 101/73
[2017-09-02 22:46] LABS: APPEARANCE CLEAR ((CLEAR)); BILIRUBIN NEGATIVE; BLOOD NEGATIVE; COLOR YELLOW ((YELLOW)); GLUCOSE (STRIP) NEGATIVE; KETONES NEGATIVE; LEUKOCYTES NEGATIVE; NITRITE NEGATIVE; PROTEIN (STRIP) NEGATIVE; UROBILINOGEN 0.2 MG/DL (0.2-1.0)
[2017-09-02 22:55] LABS: AMPHETAMINE NEGATIVE (500 ng/mL); BARBITURATES NEGATIVE (200 ng/mL); BENZODIAZEPINES PRESUMPTIVE POSITIVE (150 ng/mL); BUPRENORPHINE NEGATIVE (10 ng/mL); COCAINE NEGATIVE (150 ng/mL); METHADONE NEGATIVE (200 ng/mL); METHAMPHETAMINE NEGATIVE (500 ng/mL); OPIATES (MORPHINE) NEGATIVE (100 ng/mL); OXYCODONE NEGATIVE (100 ng/mL); PHENCYCLIDINE NEGATIVE (25 ng/mL); PROPOXYPHENE NEGATIVE (300 ng/mL); THC CANNABINOIDS NEGATIVE (50 ng/mL); TRICYCLIC ANTIDEPRESSANTS NEGATIVE (300 ng/mL)
[2017-09-03 03:25] LABS: BENZODIAZEPINES, URINE SCREEN POSITIVE (200 ng/mL)
== END 2017-09-02 23:39 | disposition left against medical advice (07) ==
LOC: EME 21:27
PROVIDERS: Physician Assistant
DX: G89.18 Other acute postprocedural pain (principal); I95.1 Orthostatic hypotension; E78.5 Hyperlipidemia, unspecified; I10 Essential (primary) hypertension; F32.9 Major depressive disorder, single episode, unspecified; F41.9 Anxiety disorder, unspecified; B19.20 Unspecified viral hepatitis C without hepatic coma; J45.909 Unspecified asthma, uncomplicated; I25.10 Atherosclerotic heart disease of native coronary artery without angina pectoris; Z95.1 Presence of aortocoronary bypass graft; Z88.6 Allergy status to analgesic agent; Z88.8 Allergy status to other drugs, medicaments and biological substances; Z87.891 Personal history of nicotine dependence; Z87.442 Personal history of urinary calculi
CPT/HCPCS: 81003; 84999; 99281; 99284

== ENCOUNTER 2017-09-23 02:00 | Emergency (ER) | payer OTHER ==
[~2017-09-23] VITALS: Ht 177.8 cm; Wt 84.7 kg
[2017-09-23 02:35] LABS: HEMATOCRIT 40.5 % (38.0-50.0); HEMOGLOBIN 13.6 G/DL (12.5-16.6); MCH 32.3 PG (29.0-34.0); MCHC 33.6 G/DL (30.0-36.0); MCV 96.2 FL (86-99); PLATELET COUNT 261 K/uL (156-360); RBC DIS.WIDTH-CV 12.2 % (11.8-14.6); RBC DIS.WIDTH-SD 42.5 % (39-53); RED BLOOD COUNT 4.21 M/uL (4.00-5.50)
[2017-09-23 02:41] LABS: APPEARANCE SL.HAZY ((CLEAR)); BILIRUBIN NEGATIVE; BLOOD SMALL; COLOR YELLOW ((YELLOW)); GLUCOSE (STRIP) NEGATIVE; KETONES NEGATIVE; LEUKOCYTES NEGATIVE; NITRITE NEGATIVE; PROTEIN (STRIP) NEGATIVE; SPECIFIC GRAVITY 1.014 (1.000-1.030); UROBILINOGEN 0.2 MG/DL (0.2-1.0)
[2017-09-23 02:42] LABS: ALBUMIN 4.1 g/dL (3.2-4.8); CHLORIDE 106 mEq/L (99-109); SODIUM 142 mEq/L (136-147)
[2017-09-23 02:44] LABS: GLUCOSE 132 mg/dL (70-99)
[2017-09-23 02:45] LABS: TOTAL PROTEIN 7.3 g/dL (6.4-8.3)
[2017-09-23 02:45] LABS: BACTERIA NONE SEEN /HPF; EPITHELIAL CELLS RARE /HPF; MUCUS NONE SEEN /LPF; UCUL ADDED? NO; WHITE BLOOD CELLS 0-5 /HPF (0-5)
[2017-09-23 02:46] LABS: TOTAL BILIRUBIN 0.5 mg/dL (0.0-1.0)
[2017-09-23 02:48] LABS: ALKALINE PHOSPHATASE 135 IU/L (3-129); CREATININE 1.2 mg/dL (0.6-1.3); GFR ESTIMATE (CALCULATED) > 59 mL/min/ (58.99-99999)
[2017-09-23 02:49] LABS: UREA NITROGEN (BUN) 24 mg/dL (9-23)
[2017-09-23 02:50] LABS: AST (GOT) 24 IU/L (2-34)
[2017-09-23 02:51] LABS: ALT (GPT) 24 IU/L (3-49)
[2017-09-23 05:10] LABS: LIPASE 24 U/L (1.0-51.0)
[2017-09-23 07:03] VITALS: BP 149/75
== END 2017-09-23 07:05 | disposition home or self-care (01) ==
LOC: EME 02:00
DX: M54.9 Dorsalgia, unspecified (principal); G89.29 Other chronic pain; R31.9 Hematuria, unspecified; I10 Essential (primary) hypertension; E78.5 Hyperlipidemia, unspecified; I25.10 Atherosclerotic heart disease of native coronary artery without angina pectoris; K75.9 Inflammatory liver disease, unspecified; G43.909 Migraine, unspecified, not intractable, without status migrainosus; J45.909 Unspecified asthma, uncomplicated; F32.9 Major depressive disorder, single episode, unspecified; F41.9 Anxiety disorder, unspecified; F31.9 Bipolar disorder, unspecified; Z79.82 Long term (current) use of aspirin; Z87.891 Personal history of nicotine dependence; Z95.1 Presence of aortocoronary bypass graft; Z87.442 Personal history of urinary calculi; Z88.6 Allergy status to analgesic agent; Z91.041 Radiographic dye allergy status; Z88.8 Allergy status to other drugs, medicaments and biological substances
CPT/HCPCS: 74176; 80053; 81003; 83690; 85027; 99281; 99284; J3030

== ENCOUNTER 2018-01-01 08:28 | Emergency (ER) | payer OTHER ==
[~2018-01-01] VITALS: Ht 177.8 cm; Wt 84.6 kg
[2018-01-01 08:34] VITALS: BP 92/81
[2018-01-01] MEDS ORDERED: NAPROSYN500 MG PO (09:05)
[2018-01-01] MEDS ORDERED: KEFLEX500 MG PO (09:05)
== END 2018-01-01 09:06 | disposition home or self-care (01) ==
LOC: EME 08:28
DX: L60.0 Ingrowing nail (principal); Z95.1 Presence of aortocoronary bypass graft; Z88.6 Allergy status to analgesic agent; Z91.041 Radiographic dye allergy status; Z88.8 Allergy status to other drugs, medicaments and biological substances
CPT/HCPCS: 99281; 99283

== ENCOUNTER 2018-01-02 14:45 | Emergency (ER) | payer OTHER ==
[~2018-01-02] VITALS: Ht 177.8 cm; Wt 85.4 kg
[~2018-01-02 14:45] MED LIST changes: +KEFLEX500 MG PO; +NAPROSYN500 MG PO
[2018-01-02 14:52] VITALS: BP 111/64
== END 2018-01-02 15:12 | disposition left against medical advice (07) ==
LOC: EME 14:45
DX: R03.1 Nonspecific low blood-pressure reading (principal); Z53.21 Procedure and treatment not carried out due to patient leaving prior to being seen by health care provider

== ENCOUNTER 2018-01-02 18:34 | Emergency (ER) | payer OTHER ==
[~2018-01-02] VITALS: Ht 177.8 cm; Wt 86.2 kg
[2018-01-02 18:46] VITALS: BP 127/74
== END 2018-01-02 19:31 | disposition left against medical advice (07) ==
LOC: EME 18:34
DX: I95.9 Hypotension, unspecified (principal); Z53.21 Procedure and treatment not carried out due to patient leaving prior to being seen by health care provider

== ENCOUNTER 2018-01-08 09:47 | Emergency (ER) | payer OTHER ==
[~2018-01-08] VITALS: Ht 177.8 cm; Wt 82.4 kg
[2018-01-08 09:52] VITALS: BP 124/72
== END 2018-01-08 11:15 | disposition left against medical advice (07) ==
LOC: EME 09:47
DX: M79.606 Pain in leg, unspecified (principal); Z72.820 Sleep deprivation; Z53.21 Procedure and treatment not carried out due to patient leaving prior to being seen by health care provider

== ENCOUNTER 2018-01-09 20:49 | Emergency (ER) | payer OTHER ==
[~2018-01-09] VITALS: Ht 177.8 cm; Wt 86.2 kg
[2018-01-09 21:06] VITALS: BP 101/62
[2018-01-09 21:40] LABS: HEMATOCRIT 42.4 % (38.0-50.0); HEMOGLOBIN 14.5 G/DL (12.5-16.6); MCH 31.6 PG (29.0-34.0); MCHC 34.2 G/DL (30.0-36.0); MCV 92.4 FL (86-99); PLATELET COUNT 199 K/uL (156-360); RBC DIS.WIDTH-CV 13.2 % (11.8-14.6); RBC DIS.WIDTH-SD 44.9 % (39-53); RED BLOOD COUNT 4.59 M/uL (4.00-5.50); WHITE BLOOD COUNT 10.7 K/uL (4.1-10.2)
[2018-01-09 21:54] LABS: CHLORIDE 108 mEq/L (99-109); POTASSIUM 4.6 mEq/L (3.7-5.4); SODIUM 138 mEq/L (136-147)
[2018-01-09 21:56] LABS: GLUCOSE 111 mg/dL (70-99)
[2018-01-09 22:00] LABS: CREATININE 1.1 mg/dL (0.6-1.3); GFR ESTIMATE (CALCULATED) > 59 mL/min/ (58.99-99999); UREA NITROGEN (BUN) 46 mg/dL (9-23)
[2018-01-09 22:04] LABS: TROP-I INTERPRETATION NEGATIVE; TROPONIN-I < 0.01 ng/mL (0.0-0.30)
== END 2018-01-09 21:37 | disposition left against medical advice (07) ==
LOC: EME 20:49
DX: R07.89 Other chest pain (principal); R05 Cough; Z95.1 Presence of aortocoronary bypass graft; Z53.21 Procedure and treatment not carried out due to patient leaving prior to being seen by health care provider
CPT/HCPCS: 71046; 80048; 84484; 85027; 93005

== ENCOUNTER 2018-01-22 06:52 | Emergency (ER) | payer OTHER ==
[~2018-01-22] VITALS: Ht 177.8 cm; Wt 85.9 kg
[2018-01-22 07:20] LABS: HEMATOCRIT 38.3 % (38.0-50.0); HEMOGLOBIN 12.8 G/DL (12.5-16.6); MCH 31.5 PG (29.0-34.0); MCHC 33.4 G/DL (30.0-36.0); MCV 94.3 FL (86-99); PLATELET COUNT 215 K/uL (156-360); RBC DIS.WIDTH-CV 12.6 % (11.8-14.6); RBC DIS.WIDTH-SD 43.5 % (39-53); RED BLOOD COUNT 4.06 M/uL (4.00-5.50)
[2018-01-22 07:46] LABS: TROP-I INTERPRETATION NEGATIVE; TROPONIN-I < 0.01 ng/mL (0.0-0.30)
[2018-01-22 07:50] LABS: CHLORIDE 103 MEQ/L (99-109); GFR ESTIMATE (CALCULATED) > 59 mL/min/ (58.99-99999); GLUCOSE 129 mg/dL (70-99); SODIUM 139 MEQ/L (136-147); UREA NITROGEN (BUN) 31 mg/dL (9-23)
[2018-01-22 08:18] VITALS: BP 108/64
== END 2018-01-22 08:21 | disposition home or self-care (01) ==
LOC: EME 06:52
PROVIDERS: Family Medicine
DX: N63.20 Unspecified lump in the left breast, unspecified quadrant (principal); R07.89 Other chest pain; I10 Essential (primary) hypertension; E78.5 Hyperlipidemia, unspecified; J45.909 Unspecified asthma, uncomplicated; G43.909 Migraine, unspecified, not intractable, without status migrainosus; F41.9 Anxiety disorder, unspecified; F32.9 Major depressive disorder, single episode, unspecified; F31.9 Bipolar disorder, unspecified; Z95.1 Presence of aortocoronary bypass graft; Z87.442 Personal history of urinary calculi; Z88.6 Allergy status to analgesic agent; Z88.8 Allergy status to other drugs, medicaments and biological substances; Z91.041 Radiographic dye allergy status
CPT/HCPCS: 80048; 83880; 84484; 85027; 93005; 99281; 99284